=== PATIENT | male | born 1965 | race Caucasian/White ===

== ENCOUNTER 2019-02-17 06:50 | Outpatient (CLI) | payer OTHER ==
[2019-03-20] MEDS ORDERED: ATOR10TA9 PO (13:53)
== END 2019-02-17 23:59 | disposition home or self-care (01) ==
LOC: CVU 06:50
PROVIDERS: ATTEND Internal Medicine Cardiovascular Disease
DX: Z01.810 Encounter for preprocedural cardiovascular examination (principal); I37.1 Nonrheumatic pulmonary valve insufficiency; E78.5 Hyperlipidemia, unspecified
CPT/HCPCS: 0399T; 93306